=== PATIENT | female | born 1995 | race African-American/Black ===

== ENCOUNTER 2024-10-11 13:13 | Emergency (ER) | payer SELFPAY ==
[~2024-10-11] VITALS: Ht 162.6 cm; Wt 81.6 kg
[2024-10-11 13:40] VITALS: PULSE 86; RESP 16; TEMP 98.4; O2SAT 100
[2024-10-11 14:01] LABS: BASOPHILS % 0.4 % (0.0-1.0); EOSINOPHILS % 1.4 % (0.0-6.0); LYMPHOCYTES % 30.0 % (18.0-39.1); MONOCYTES % 4.7 % (4.4-11.3); NEUTROPHILS % 63.2 % (38.7-80.0); RED CELL DISTRIBUTION WIDTH 14.4 % (11.7-14.4)
[2024-10-11 14:04] LABS: LEUKOCYTE ESTERASE ,URINE NEGATIVE (NEGATIVE); PROTEIN,URINE DIPSTICK NEGATIVE (NEGATIVE); URINE UROBILINOGEN 0.2 mg/dL (0.2 - 1)
[2024-10-11 14:06] LABS: EPITHELIAL CELLS,URINE MANY /LPF; WBC,URINE (MAN) 0-5 /HPF (0-5)
[2024-10-11 14:24] LABS: EST GLOMERULAR FILTRATION RATE 104.0 ML/MIN (>=60)
== END 2024-10-11 17:15 | disposition home or self-care (01) ==
LOC: ER 15:02
DX: M54.50 Low back pain, unspecified (principal)
CPT/HCPCS: 36415; 74176; 80053; 81001; 84702; 85025; 99284